=== PATIENT | male | born 1990 | race Two or more races ===

== ENCOUNTER 2018-05-02 15:50 | Emergency (ER) | payer BC, OTHER ==
[~2018-05-02] VITALS: Ht 182.9 cm; Wt 102.1 kg
[2018-05-02 17:25] LABS: Basophils # (auto) 0 uL; Basophils % (auto) 0.4 % (0.0-2.0); Eosinophils # (auto) 0.1 uL; Eosinophils % (auto) 1.2 % (0.0-7.0); Hematocrit 44.3 % (41.0-53.0); Hemoglobin 15.1 g/dL (13.5-17.5); Lymphocytes # (auto) 2.4 uL; Lymphocytes % (auto) 24.6 % (10.0-50.0); Mean Corpuscular Hemoglobin 28.7 pg (28.0-32.0); Mean Corpuscular Volume 84.3 fL (80.0-100.0); Monocytes # (auto) 0.8 uL; Monocytes % (auto) 8.2 % (0.0-12.0); Neutrophils # (auto) 6.3 uL; Neutrophils % (auto) 65.6 % (37.0-80.0); Nucleated Red Blood Cells % 0.1 %; Platelet Count (auto) 342 10^3/uL (140-450); Red Blood Cells 5.26 10^6/uL (4.5-5.90); White Blood Cell 9.6 10^3/uL (4.4-10.8)
[2018-05-02 18:29] VITALS: BP 141/94
== END 2018-05-02 18:52 | disposition home or self-care (01) ==
LOC: ER 15:50
DX: K64.8 Other hemorrhoids (principal); L40.9 Psoriasis, unspecified
CPT/HCPCS: 36415; 85025; 94761